=== PATIENT | male | born 1990 | race African-American/Black ===

== ENCOUNTER 2022-08-04 16:10 | Emergency (ER) | payer SELFPAY ==
[~2022-08-04] VITALS: Ht 180.3 cm; Wt 117.9 kg
[2022-08-04 16:11] VITALS: BP 136/70
--- NOTE | 2022-08-04 16:34 | NUR ---
PT BIB [facility] C/C OD. PT FOUND IN [facility] BATHROOM ALTERED HOLDING A DRUG PIPE IN HANDS. MEDICATED WITH 2MG NARCAN IVP [employer]. PT BREATHING UNLABORED ON ARRIVAL. SATURATION 96%. BS 135.
[2022-08-04] MEDS ORDERED: NALO4SPR NS (18:35)
[2022-08-04 19:09] VITALS: BP 122/80
--- NOTE | 2022-08-04 19:10 | NUR ---
Patient discharged with v/s stable. Written and verbal after care instructions given and explained. Patient alert, oriented and verbalized understanding of instructions. Ambulatory with steady gait. All questions addressed prior to discharge. ID band removed. Patient advised to follow up with PMD. Rx of NARCAN given. Patient educated on indication of medication including possible reaction and side effects. Opportunity to ask questions provided and answered.
== END 2022-08-04 19:09 | disposition home or self-care (01) ==
LOC: MED 16:10
DX: R00.0 Tachycardia, unspecified (principal); T50.7X1A Poisoning by analeptics and opioid receptor antagonists, accidental (unintentional), initial encounter; Z79.899 Other long term (current) drug therapy; Y92.89 Other specified places as the place of occurrence of the external cause
CPT/HCPCS: 99283

== ENCOUNTER 2022-10-08 17:24 | Emergency (ER) | payer SELFPAY ==
[~2022-10-08] VITALS: Ht 172.7 cm; Wt 81.6 kg
[~2022-10-08 17:24] MED LIST: NALO4SPR NS
[2022-10-08 17:44] VITALS: BP 149/90
[2022-10-08] MEDS ORDERED: KETOROLAC 30 MG/ML VIAL IM ONE (18:05)
--- NOTE | 2022-10-08 18:50 | NUR ---
pt unable to give urine sample at this time. pt medicated and provided w/ urine cup. amb back to [facility]
[2022-10-08] MEDS ORDERED: ACET-2619 PO (19:29)
--- NOTE | 2022-10-08 19:55 | NUR ---
Patient discharged with v/s stable. Written and verbal after care instructions given and explained. Patient verbalized understanding. Ambulatory with to home. All questions addressed prior to discharge. Advised to follow up with PMD.
== END 2022-10-08 19:55 | disposition home or self-care (01) ==
LOC: MED 17:24
DX: M54.50 Low back pain, unspecified (principal); Z79.899 Other long term (current) drug therapy
CPT/HCPCS: 74176; 96372; 99285; J1885

== ENCOUNTER 2023-08-11 15:53 | Emergency (ER) | payer SELFPAY ==
[~2023-08-11] VITALS: Ht 180.3 cm; Wt 95.3 kg
[2023-08-11 15:53] VITALS: BP 126/72; PULSE 106; RESP 16; TEMP 98.6; O2SAT 100
[~2023-08-11 15:53] MED LIST changes: +ACET-2619 PO
[2023-08-11] MEDS ORDERED: NALO4SPR NS (17:19)
[2023-08-11 19:06] VITALS: BP 127/72; PULSE 110; RESP 15; O2SAT 96
== END 2023-08-11 19:29 | disposition home or self-care (01) ==
LOC: MED 15:53
DX: R41.82 Altered mental status, unspecified (principal); T40.2X1A Poisoning by other opioids, accidental (unintentional), initial encounter; Y92.89 Other specified places as the place of occurrence of the external cause
CPT/HCPCS: 82948; 99283